=== PATIENT | female | born 1995 | race Caucasian/White ===

== ENCOUNTER 2018-02-08 08:00 | Outpatient (CLI) | payer MEDICAID | END 2018-02-08 08:01 | LOC: LAB.R 08:00 | PROVIDERS: ATTEND Nurse Practitioner Obstetrics & Gynecology | DX: Z11.3 Encounter for screening for infections with a predominantly sexual mode of transmission (principal) | CPT/HCPCS: 87491; 87591 ==

== ENCOUNTER 2018-02-10 08:15 | Outpatient (CLI) | payer MEDICAID ==
--- NOTE | 2018-02-10 16:43 | Ultrasound Report ---
Procedure Date: 02/10/2018 Accession Number: [id number] / [id number] Procedure: US - OB Detailed Eval CPT Code: FULL RESULT: EXAM: OB Detailed Eval DATE: 02/10/2018 9:50 AM CLINICAL HISTORY: ENCOUNTER FOR SCREENING, UNSOECIFIED TECHNIQUE: Real-time scanning was performed with procurement representative static images obtained. COMPARISON: None LAST MENSTRUAL PERIOD: 07/18/2017 Clinical Age: 29 weeks 4 days US Age: 29 weeks 4 days EFW Hadlock: 1224 grams EFW % Hadlock: 10% Heart Rate: 161 bpm EDC: 04/24/2018 US EDC: 04/24/2018 BPD Hadlock: 28 weeks 5 days; Mean mm 72 HC Hadlock: 29 weeks 4 days; Mean mm 271 AC Hadlock: 28 weeks 1 days; Mean mm 238 FL Hadlock: 28 weeks 4 days; Mean mm 54 Presentation: Cephalic Placental Location: Fundal/Posterior Cervical Length: 3.6 cm Amniotic Fluid: TOMEKA Subjectively normal cm; MVP 4.1 cm FINDINGS: There is a single live intrauterine in cephalic presentation with a posterior/fundal placenta without evidence of previa and a normally central three-vessel cord with a heart rate of 161 bpm and a sonographic age of 28 weeks and 5 days. The following anatomic structures were visualized and appear normal: The intracranial contents, including the ventricles and posterior fossa; the lips and orbits; the spine; the heart, including 4 chamber view and outflow tracts, and diaphragm; the abdominal contents, including the stomach, the bilateral kidneys, and urinary bladder, as well as a normal 3-vessel cord insertion; 4 limbs. IMPRESSION: Single live intrauterine gestation with a sonographic age of 28 weeks and 5 days.
== END 2018-02-10 08:16 | disposition home or self-care (01) ==
LOC: DI 08:15
PROVIDERS: ATTEND Nurse Practitioner Obstetrics & Gynecology
DX: Z36.9 Encounter for antenatal screening, unspecified (principal)
CPT/HCPCS: 76811

== ENCOUNTER 2018-02-20 10:49 | Outpatient (CLI) | payer MEDICAID ==
[2018-02-20 11:21] LABS: BILIRUBIN,URINE NEGATIVE (NEGATIVE); GLUCOSE, URINE (UA) NEGATIVE (NEGATIVE); KETONES,URINE (UA) 15 mg/dL (NEGATIVE); LEUKOCYTE ESTERASE, URINE NEGATIVE (NEGATIVE); NITRITE,URINE NEGATIVE (NEGATIVE); OCCULT BLOOD,URINE NEGATIVE (NEGATIVE); PROTEIN,URINE NEGATIVE (NEGATIVE); UROBILINOGEN,URINE 0.2 (NORMAL) E.U./dL (NORMAL)
[2018-02-20 11:22] LABS: CLARITY,URINE CLEAR (CLEAR)
[2018-02-20 11:28] LABS: BACTERIA,URINE Few /HPF (None Seen); RBC,URINE 0-5 /HPF (0-5); SQUAMOUS EPITHELIAL CELL,UR MOD Squamous (<= Few)
[2018-02-20 12:25] LABS: BASOPHILS % (AUTO) 0.2 %; EOSINOPHILS # (AUTO) 0.1 10^3/uL (0.0-0.7); EOSINOPHILS % (AUTO) 0.6 %; HGB - HEMOGLOBIN 11.4 g/dL (12.0-16.0); LYMPHOCYTES # (AUTO) 1.9 10^3/uL (1.5-3.5); LYMPHOCYTES % (AUTO) 15.6 %; MEAN CORPUSCULAR HEMOGLOBIN 30.5 pg (27.0-31.0); MEAN CORPUSCULAR HGB CONC 33.9 g/dL (32.0-36.0); MEAN PLATELET VOLUME 7.2 fL (7.9-10.8); MONOCYTES # (AUTO) 0.7 10^3/uL (0.0-1.0); MONOCYTES % (AUTO) 5.6 %; NEUTROPHILS # (AUTO) 9.3 10^3/uL (1.5-6.6); PLT - PLATELET COUNT 367 10^3/uL (130-450); RED BLOOD COUNT 3.75 10^6/uL (4.20-5.40); RED CELL DISTRIBUTION WIDTH 12.7 % (12.0-15.0); WHITE BLOOD COUNT 11.9 x10^3/uL (4.8-10.8)
[2018-02-21 11:56] LABS: HEPATITIS C ANTIBODY NON-REACTIVE (NON-REACTIVE)
[2018-02-21 11:58] LABS: HEPATITIS B SURFACE ANTIGEN NON-REACTIVE (NON-REACTIVE)
[2018-02-21 13:52] LABS: HIV AG/AB 4TH GEN NON-REACTIVE (NON-REACTIVE)
== END 2018-02-20 10:50 | disposition home or self-care (01) ==
LOC: LAB 10:49
PROVIDERS: ATTEND Nurse Practitioner Obstetrics & Gynecology
DX: Z36.9 Encounter for antenatal screening, unspecified (principal)
CPT/HCPCS: 36415; 81001; 81599; 82950; 85025; 86762; 86803; 86850; 86900; 86901; 87340; 87389

== ENCOUNTER 2018-03-07 08:00 | Outpatient (CLI) | payer MEDICAID | END 2018-03-07 08:01 | LOC: LAB.R 08:00 | PROVIDERS: ATTEND Nurse Practitioner Obstetrics & Gynecology | DX: Z11.3 Encounter for screening for infections with a predominantly sexual mode of transmission (principal) | CPT/HCPCS: 87491; 87591 ==

== ENCOUNTER 2018-04-07 16:07 | Inpatient (IN) | payer MEDICAID ==
[2018-04-07] MEDS ORDERED: SODIUM CHLORIDE FLUSH 0.9% 10 ML SYRINGE IVP PRN (16:43)
[2018-04-07] MEDS ORDERED: fentaNYL 100 MCG/2 ML VIAL IVP PRN (16:43)
[2018-04-07] MEDS ORDERED: URSODIOL 250 MG TABLET PO SCH (17:00)
[2018-04-07 17:34] LABS: BASOPHILS % (AUTO) 0.3 %; EOSINOPHILS # (AUTO) 0.1 10^3/uL (0.0-0.7); EOSINOPHILS % (AUTO) 1.3 %; HGB - HEMOGLOBIN 12.2 g/dL (12.0-16.0); LYMPHOCYTES # (AUTO) 1.5 10^3/uL (1.5-3.5); LYMPHOCYTES % (AUTO) 19.8 %; MEAN CORPUSCULAR HEMOGLOBIN 30.4 pg (27.0-31.0); MEAN CORPUSCULAR HGB CONC 34.6 g/dL (32.0-36.0); MEAN CORPUSCULAR VOLUME 87.9 fL (81.0-99.0); MEAN PLATELET VOLUME 7.8 fL (7.9-10.8); MONOCYTES # (AUTO) 0.5 10^3/uL (0.0-1.0); MONOCYTES % (AUTO) 6.9 %; NEUTROPHILS # (AUTO) 5.4 10^3/uL (1.5-6.6); NEUTROPHILS % (AUTO) 71.7 %; PLT - PLATELET COUNT 376 10^3/uL (130-450); RED CELL DISTRIBUTION WIDTH 12.5 % (12.0-15.0); WHITE BLOOD COUNT 7.6 x10^3/uL (4.8-10.8)
[2018-04-07 17:45] LABS: ALBUMIN 3.1 g/dL (3.2-5.5); ALBUMIN/GLOBULIN RATIO 0.6 (1.0-2.2); BILIRUBIN,TOTAL 0.4 mg/dL (0.2-1.0); CALCIUM 9.1 mg/dL (8.5-10.3); CREATININE 0.6 mg/dL (0.4-1.0)
--- NOTE | 2018-04-07 18:00 | HISTORY & PHYSICAL EXAMINATION ---
Admit History - Instructions [place]/Slash: -Left hand click circles element as positive or present. -Right hand click slashes element as negative or not present. - Visit Reason Visit Reason: Other - : 2 Parity: 0 Premature: 0 Ectopic: 0 : 1 Care: positive: [facility] Risk/History: positive: None Complications This : positive: Other Smoking Status: Never smoker - Mother's Labs Mother's Blood Type: positive: A Mother's RH: positive: Positive GBS: positive: Other Rubella Status: positive: Immune Review of Systems - Constitutional Constitutional: denies: Fatigue, Fever, Chills, Malaise - Eyes Eyes: denies: Pain, Irritation, Blurred vision, Spots in vision, Vision loss - Cardiovascular Cariovascular: denies: Irregular heart rate, Palpitations, Chest pain, Edema - Respiratory Respiratory: denies: Cough, Sputum production, Wheezing, Snoring - Gastrointestinal Gastrointestinal: denies: Abdominal pain, Constipation, Diarrhea, Nausea, Vomiting - Genitourinary Genitourinary: denies: Dysuria, Frequency, Urgency - Musculoskeletal Musculoskeletal: denies: Muscle pain - Integumentary Integumentary: reports: Pruritis - Neurological Neurological: denies: General weakness, Headache, Dizziness - Psychiatric Psychiatric: denies: Depression, Anxiety Physical - Abdominal Exam Contraction Frequency (min/apart): occasional Contraction Intensity: positive: Mild Uterine Resting Tone: positive: Soft - Monitoring Heart Rate Baseline: 150 Strip Review: positive: Category I - Presentation Presentation: positive: Vertex - Vaginal Exam Membranes: positive: Membranes intact Dilation (in cm): 1 Effacement (%): 50 Station: positive: -3 Cervical Position: positive: Posterior - Speculum Exam Speculum Exam Performed: positive: No Plan for Labor - Plan For Labor I expect patient to be DC'd or transferred within 96 hours.: Yes Plan for Labor: HPI: Evan is a 23yo @ 37.4wks gestation by 6w4d ultrasound who presented to the office today with c/o severe itching on the palms of her hands and the soles of her feet which worsens at night. She was a late transfer of care at 29 weeks gestation with limited care up until that time. She received 2 ultrasounds in early to establish dates. Her has been complicated by +chlamydia at 29 weeks gestation which was treated appropriately and a third trimester test of cure was negative. She denies VB or Lof. She reports intermittent lower back discomfort and menstrual-like lower abdominal cramping. She denies CANALES, visual disturbances, RUQ or epigastric pain. She r eports +FM. Her mother is with her and supportive. Dating criteria: 1. LMP unsure 2. 6w5d ultrasound JANICE 04/24/2018 3. Serial exams 29-37 weeks agree OB History: 1. SAB 08/2016 2. Current: +chlamydia, third trimester LUCIANO negative PMHx: none Surgical Hx: none Family Hx: Asthma-sister labs: A pos; antibody neg Hgb 11.4; Hct 33.7; PLT 367 Rubella immune RPR non-reactive Hep B non-reactive Hep C non-reactive HIV negative 1 hour GTT 130 Chlamydia positive GC negative Third trimester GC/CT negative Ultrasounds: FAS 02/13/2018 WNL, posterior, fundal placenta, no previa. Physical Exam: A&O x 4 Heart RRR w/o M/G/R Lungs CTAB Abdomen gravid, soft, nontender EFW 5.5lbs Bilateral LE's no edema Labs on admission: AST 124 ALT 187 ALK Phos 257 K 3.4 Na 134 Hgb 12.2 Hct 35.2 PLT 376 Assessment: 23yo @ 37.5wks gestation by 6.5wk U/S Cholestasis in Pre-induction cervical ripening with BC misoprostol 50mcg q 4 hours Rapid GBS pending Plan: Initiation of ursediol 500mg tid KCL 40 PO x 1 dose Continuous monitoring Pre-induction cervical ripening until favorable cervical status is reached Close monitoring of CMP - will repeat in AM Repeat CBC for evaluation of improved K in AM. Anticipate spontaneous vaginal delivery Dr. Mari attending physician aware of patient status and consult requested. He concurs with present plan. Will continue to update Dr. Mari with ongoing plan of care. Pt and mother both verbalized understanding and agree to above plan. Denies further questions or concerns at this time.
[2018-04-07] MEDS: miSOPROStol 100 MCG TABLET BC SCH (18:15)
[2018-04-07] MEDS ORDERED: POTASSIUM CHLORIDE 20 MEQ TABLET PO SCH (18:44)
--- NOTE | 2018-04-07 19:10 | PREOP HISTORY & PHYSICAL ---
DATE OF SERVICE: 04/07/2018 Physician: Lennox Mari MD PATIENT IDENTIFICATION: The patient is a 23-year-old, G2, P0, AB1, female whose EDC is 04/24/2018. CHIEF COMPLAINT: Itching generalized throughout the body, as well as in particular plantar and palmar itching. HISTORY OF PRESENT ILLNESS: The patient states she developed this itching roughly 1 week ago. It has become progressively worse with time. She states that she has never had any episodes like this in the past. Upon questioning her sister, she had some itching at tem but was not diagnosed with Cholestasis. There is no family history of any cholestasis of . She relates that she is doing well otherwise. OB HISTORY: Positive for 1 spontaneous miscarriage. She started her OB records here, start at 29 weeks EGA. she had She has had regular visits. LABS: Her labs show her to be A positive. She is rubella immune. Her hepatitis B is noted to be negative. Her HIV is also negative. PAST MEDICAL HISTORY: The patient denies any hypertensive, diabetic, or cardiac disease. PAST SURGICAL HISTORY: None. ALLERGIES: NONE KNOWN. CURRENT MEDICATIONS: Those of vitamins. HABITS: The patient denies use of alcohol, tobacco, street or addictive drugs. FAMILY HISTORY: Negative for any cholestasis of . VITAL SIGNS: Her blood pressure is noted to be normal at this particular time. In clinic today, her blood pressure was 108/56. Fundal height is concurrent. heart rate is 138. LABORATORY DATA: Here in the hospital, her CBC shows a white count of 7.6. Hemoglobin is 12.2. Hematocrit is 35.2. Platelets are 376. Her chemistries, however, showed a sodium of 134 and potassium of 3.4. ALT was 187. AST was 124. Alkaline phosphatase was elevated, as to be expected. Her albumin and globulin are both low. ASSESSMENT AND PLAN: The patient is a 23-year-old, G2, P0, female at 37.4 weeks. She shows classic signs of cholestasis of . We have drawn. She has had the bile salts drawn at this particular time; however, they are pending and will take a while to return. The presumptive diagnosis of cholestasis of has been made. She has had cervical ripening with induction being scheduled at this time. She is currently being followed on the monitor continuously. She is also receiving Ursocol to help with some of the itching. At this particular time, we will order hepatitis panels to rule out any acute or developing hepatitis A, B, or C. TD: 04/07/2018 18:28 MTDCaleb
[2018-04-07 19:26] LABS: INR 0.9 (0.8-1.2); PT - PROTHROMBIN TIME 10.7 secs (9.9-12.6)
[2018-04-07 19:30] LABS: BILIRUBIN,DIRECT 0.2 mg/dL (0.1-0.5); BILIRUBIN,INDIRECT 0.6 mg/dL; BILIRUBIN,TOTAL 0.8 mg/dL (0.2-1.0)
[2018-04-08] MEDS: miSOPROStol 100 MCG TABLET BC SCH (05:51)
[2018-04-08 09:33] LABS: BASOPHILS % (AUTO) 0.3 %; EOSINOPHILS # (AUTO) 0.1 10^3/uL (0.0-0.7); EOSINOPHILS % (AUTO) 0.6 %; HGB - HEMOGLOBIN 12.4 g/dL (12.0-16.0); LYMPHOCYTES # (AUTO) 1.7 10^3/uL (1.5-3.5); LYMPHOCYTES % (AUTO) 13.6 %; MEAN CORPUSCULAR HEMOGLOBIN 30.4 pg (27.0-31.0); MEAN CORPUSCULAR HGB CONC 34.3 g/dL (32.0-36.0); MEAN CORPUSCULAR VOLUME 88.6 fL (81.0-99.0); MEAN PLATELET VOLUME 7.7 fL (7.9-10.8); MONOCYTES # (AUTO) 0.7 10^3/uL (0.0-1.0); MONOCYTES % (AUTO) 5.1 %; NEUTROPHILS # (AUTO) 10.2 10^3/uL (1.5-6.6); NEUTROPHILS % (AUTO) 80.4 %; PLT - PLATELET COUNT 358 10^3/uL (130-450); RED BLOOD COUNT 4.08 10^6/uL (4.20-5.40); RED CELL DISTRIBUTION WIDTH 12.5 % (12.0-15.0); WHITE BLOOD COUNT 12.7 x10^3/uL (4.8-10.8)
[2018-04-08 09:45] LABS: ALBUMIN/GLOBULIN RATIO 0.6 (1.0-2.2); BILIRUBIN,TOTAL 0.8 mg/dL (0.2-1.0); CREATININE 0.6 mg/dL (0.4-1.0); TOTAL PROTEIN 7.8 g/dL (6.7-8.2)
[2018-04-08] MEDS ORDERED: fent/BUPIV 2 MCG/0.125% 250 ML EP ONE (09:47)
--- NOTE | 2018-04-08 09:51 | PROVIDER PROGRESS NOTE ---
Labor Progress Note - Uterine Monitoring Uterine Monitoring Mode: positive: External toco Contraction Frequency (min/apart): 1-3 Contraction Intensity: positive: Moderate to strong Uterine Resting Tone: positive: Soft - Monitoring Monitor Mode: positive: External ultrasound Heart Rate Baseline: 150 Heart Rate Variability: positive: Moderate (6-25 bmp) Accelerations: positive: Present, 15x15 Decelerations: positive: None Strip Review: positive: Category I - Vaginal Exam Dilation (in cm): 2 Effacement (%): 80 Station: 0 Cervical Position: Midposition - Labor Progress Note Labor Progress Note/Additional Text: S: Breathing through contractions and feeling uncomfortable. She is requesting an epidural for pain management. She states she is feeling well overall. Her mom and sister are supportive at the bedside. O: BP 123/69, T36.7, HR 78, RR22 Contractions palpate moderate-strong every 2 minutes with soft resting tone. FHR baseline 150s, moderate variability, + accels, no decels SVE 2/80/0, vertex, medium consistency Labs: Hgb 12.2-12.4; Hct 35.2-36.2; PLT 376-358 PT 10.7; INR 0.9, APTT 26.0 K 3.4; Na 134 BUN 7; Cr 0.6; Total bilirubin 8 AST 124; ALT 187; Alk Phos 257 A: 23yo @ 37.6wks gestation Intrahepatic cholestasis of Elevated LFTs (see above values) FHR Category I Pre-induction cervical ripening with 50mcg BC misoprostol q 4 hours x 2 doses GBS rapid - pending P: Continuous monitoring. Continue active management to expedite delivery secondary to cholestasis diagnosis. Anesthesia notified to place epidural per maternal request Will initiate pitocin per protocol when patient comfortable with epidural Consider AROM with next SVE Repeat CBC this morning WNL. Repeat LFTs pending. Dr. Mari, attending physician, notified of ongoing plan of care and in agreement with the above plan. Reviewed plan of care with patient and her mother who is supportive at the bedside. They are both in agreement with the above plan and deny further questions or concerns at this time.
[2018-04-08] MEDS ORDERED: OXYTOCIN/SODIUM CHLORIDE 500 ML IV SCH (10:00)
--- NOTE | 2018-04-08 10:03 | ANESTHESIA ---
Pre-Anesthesia VS, & Labs - Diagnosis IUP term labor - Procedure EMILIO placement Vital Signs: Temp Pulse Resp BP Pulse Ox 36.7 C 78 22 123/69 100 04/08/18 05:00 04/08/18 05:00 04/08/18 05:00 04/08/18 05:00 04/08/18 05:00 Height 5 ft 1 in Weight (kg) 59.421 kg - NPO Last Fluid Intake: clears t/o morning - Is Patient ?: Yes - Lab Results Current Lab Results: Laboratory Tests 04/08/18 09:30: Sodium 133 L, Potassium 3.8, Chloride 100 L, Carbon Dioxide 21, Anion Gap 12.0, BUN 8, Creatinine 0.6, Estimated GFR (MDRD) 124, Glucose 110 H, Calcium 9.0, Total Bilirubin 0.8, AST 173 H, ALT 238 H, Alkaline Phosphatase 250 H, Total Protein 7.8, Albumin 3.0 L, Globulin 4.8 H, Albumin/Globulin Ratio 0.6 L 04/08/18 09:30: WBC 12.7 H, RBC 4.08 L, Hgb 12.4, Hct 36.2 L, MCV 88.6, MCH 30.4, MCHC 34.3, RDW 12.5, Plt Count 358, MPV 7.7 L, Neut # (Auto) 10.2 H, Lymph # (Auto) 1.7, [place] # (Auto) 0.7, Eos # (Auto) 0.1, Baso # (Auto) 0.0, Absolute Nucleated RBC 0.00, Nucleated RBC % 0.0 04/07/18 19:04: PT 10.7, INR 0.9, APTT 26.0 04/07/18 19:04: Total Bilirubin 0.8, Direct Bilirubin 0.2, Indirect Bilirubin 0.6 04/07/18 17:15: Sodium 134 L, Potassium 3.4 L, Chloride 101, Carbon Dioxide 22, Anion Gap 11.0, BUN 7, Creatinine 0.6, Estimated GFR (MDRD) 124, Glucose 82, Calcium 9.1, Total Bilirubin 0.4, AST 124 H, ALT 187 H, Alkaline Phosphatase 257 H, Total Protein 8.0, Albumin 3.1 L, Globulin 4.8 H, Albumin/Globulin Ratio 0.6 L 04/07/18 17:15: WBC 7.6, RBC 4.00 L, Hgb 12.2, Hct 35.2 L, MCV 87.9, MCH 30.4, MCHC 34.6, RDW 12.5, Plt Count 376, MPV 7.8 L, Neut # (Auto) 5.4, Lymph # (Auto) 1.5, [place] # (Auto) 0.5, Eos # (Auto) 0.1, Baso # (Auto) 0.0, Absolute Nucleated RBC 0.00, Nucleated RBC % 0.1 Lab results reviewed: Yes Fish Bones: 04/08/18 09:30 04/08/18 09:30 Home Medications and Allergies Active Medications Fentanyl (Fentanyl) 50 mcg IVP Q1H PRN PRN Reason: PAIN Last Admin: 04/08/18 02:33 Dose: 50 mcg Lactated Ringer's (Lr) 1,000 mls @ 100 mls/hr IV .Q10H IVAN Oxytocin/Sodium Chloride (Pitocin/Sodium Chloride) 500 mls @ 1 mls/hr IV TITR IVAN; Protocol Sodium Chloride (Normal Saline Flush 0.9%) 10 ml IVP 0100,0900,1700 IVAN Sodium Chloride (Normal Saline Flush 0.9%) 10 ml IVP PRN PRN PRN Reason: NEEDED PER PROVIDER ORDERS Ursodiol (Vicente 250) 500 mg PO TIDWM IVAN Allergies/Adverse Reactions: Allergies Allergy/AdvReac Type Severity Reaction Status Date / Time No Known Drug Allergies Allergy Verified 04/07/18 23:31 Anes History & Medical History - Anesthetic History Anesthesia Complications: reports: No previous complications Family history of Anesthesia Complications: Denies Family history of Malignant Hyperthermia: Denies - Medical History Cardiovascular: reports: None Pulmonary: reports: None Smoking Status: Never smoker - Obstetrical History : 2 Parity: 0 Events: positive: None Complications: positive: Other Exam General: Alert, Oriented x3, Cooperative, No acute distress Dental: WNL Mouth Openin Fingerbreadth Neck Mobility: Normal Mallampati classification: II Respiratory: Lungs clear Cardiovascular: Regular rate Plan Anesthesia Type: Epidural Consent for Procedure(s) Verified and Reviewed: Yes Code Status: Attempt Resuscitation ASA classification: 2-Mild systemic disease Is this case an emergency?: No
[2018-04-08] MEDS: LACTATED RINGERS 1,000 ML IV SCH (10:08)
[2018-04-08] MEDS ORDERED: ONDANSETRON 4 MG/2 ML VIAL IVP PRN (10:41)
[2018-04-08] MEDS ORDERED: LACTATED RINGERS 500 ML IV ONE (10:41)
[2018-04-08] MEDS ORDERED: METOCLOPRAMIDE 10 MG/2 ML VIAL IVP PRN (10:41)
[2018-04-08] MEDS ORDERED: ePHEDrine 50 MG/ML VIAL IVP PRN (10:41)
[2018-04-08] MEDS ORDERED: NALOXONE 0.4 MG/ML VIAL IVP PRN (10:41)
[2018-04-08] MEDS ORDERED: NALBUPHINE 10 MG/ML AMP IVP PRN (10:41)
[2018-04-08] MEDS ORDERED: fent/BUPIV 2 MCG/0.125% 250 ML EP PRN (10:41)
[2018-04-08] MEDS ORDERED: diphenhydrAMINE INJ 50 MG/ML VIAL IVP PRN (10:41)
--- NOTE | 2018-04-08 11:16 | PROVIDER PROGRESS NOTE ---
Labor Progress Note - Uterine Monitoring Uterine Monitoring Mode: positive: External toco Contraction Frequency (min/apart): 2-3 Contraction Intensity: positive: Moderate to strong Uterine Resting Tone: positive: Soft - Monitoring Monitor Mode: positive: External ultrasound Heart Rate Baseline: 150 Heart Rate Variability: positive: Moderate (6-25 bmp) Accelerations: positive: Present, 15x15 Decelerations: positive: None Strip Review: positive: Category I - Labor Progress Note Labor Progress Note/Additional Text: S: Patient resting comfortably in bed with epidural. Mother and sister supportive at the bedside. O: BP 104/83, HR 81, RR 20 Contractions palpate moderate -strong every 2-3 minutes with soft resting tone FHR baseline 150s, moderate variability, +accels, no decels Hgb 12.2-12.4 WBC 7.6-12.7 PT 10.7 INR 0.9 APTT 26.0 K 3.4-3.8 Total bilirubin 0.4-0.8-0.8 AST 124-173 ALT 187-238 Alk Phos 257-250 A: 23yo @ 37.6wks gestation by 6.5wk U/S Intrahepatic cholestasis of Early labor P: Continuous monitoring Initiate pitocin with titration per protocol AROM with next SVE Dr. Mari, attending physician, notified of change in LFTs and plans to notify MFM to review recommendations for continued plan of care.
--- NOTE | 2018-04-08 11:53 | PROVIDER PROGRESS NOTE ---
Labor Progress Note - Uterine Monitoring Contraction Intensity: positive: Moderate Uterine Resting Tone: positive: Soft - Monitoring Monitor Mode: positive: External ultrasound - Vaginal Exam Dilation (in cm): 2 Effacement (%): 80% - Labor Progress Note Labor Progress Note/Additional Text: Called [facility] Dr Turner and reviewed the case. discussed the rising LFT's He concured with delivery here and progressing to vaginal delivery and C/S for indications. will start low dose Pit at 1 for now.
[2018-04-08] MEDS: OXYTOCIN/SODIUM CHLORIDE 500 ML IV SCH (13:20)
[2018-04-08] MEDS: URSODIOL 250 MG TABLET PO SCH ×2 (13:21→17:46)
[2018-04-08] MEDS ORDERED: LIDOCAINE-MPF 2% 5 ML VIAL IM ONE (15:00)
--- NOTE | 2018-04-08 19:06 | PROVIDER PROGRESS NOTE ---
Labor Progress Note - Uterine Monitoring Uterine Monitoring Mode: positive: External toco Contraction Frequency (min/apart): 2-4 Contraction Intensity: positive: Moderate to strong Uterine Resting Tone: positive: Soft - Monitoring Monitor Mode: positive: External ultrasound Heart Rate Baseline: 150 Heart Rate Variability: positive: Moderate (6-25 bmp) Accelerations: positive: Present, 15x15 Decelerations: positive: None Strip Review: positive: Category I - Vaginal Exam Dilation (in cm): 4 Effacement (%): 90 Station: 0 Cervical Position: Anterior - Labor Progress Note Labor Progress Note/Additional Text: S: Pt comfortable with epidural. Mom and sister supportive at the bedside. She denies questions or concerns at this time. Anxious to meet her baby. O: BP 102/64, HR 114, RR 20 Contractions palpate moderate to strong every 2-4 minutes with soft resting tone. FHR pattern baseline 150, moderate variability, + accels, no decels SVE 4/90/0, vertex, anterior position, soft Pitocin infusing at 4mU/min AROM small amount of pink-tinged fluid A: 23yo @ 37.5wks gestation Intrahepatic cholestasis of Pitocin induction of labor GBS negative FHR Category I P: Continue titration of pitocin per protocol Continuous monitoring Encouraged frequent position changes in bed with peanut ball Reviewed plan of care with Dr. Mari, on-call physician, who is in agreement with continued care plan.
[2018-04-08 22:15] LABS: ALBUMIN 2.8 g/dL (3.2-5.5); ALBUMIN/GLOBULIN RATIO 0.7 (1.0-2.2); BILIRUBIN,TOTAL 0.9 mg/dL (0.2-1.0); CALCIUM 8.6 mg/dL (8.5-10.3); CREATININE 0.6 mg/dL (0.4-1.0)
[2018-04-08] MEDS ORDERED: LIDOCAINE 1% 50 ML MDV ONE (23:24)
[2018-04-09] MEDS ORDERED: HYDROCORTISONE/PRAMOXINE 10 GM PR PRN (00:06)
[2018-04-09] MEDS ORDERED: WITCH HAZEL/GLYCERIN 1 EACH MED..PAD TOP PRN (00:06)
[2018-04-09] MEDS ORDERED: OXYTOCIN/SODIUM CHLORIDE 250 ML IV ONE (00:06)
--- NOTE | 2018-04-09 00:40 | DELIVERY NOTE ---
Delivery Note - Labor Labor: positive: Augmented by ARM, Augmented by oxytocin, Other - Delivery Method Delivery Method: positive: Spontaneous vaginal delivery - Presentation Presentation: positive: Vertex, YESSICA - left occiput anterior - Nuchal Cord Nuchal Cord: positive: Present - Amniotic Fluid Description Amniotic Fluid Description: positive: Clear - Episiotomy Type Episiotomy Type: positive: None - Laceration Laceration: positive: 1st degree, Labial, Perineal - Suture Suture Type: positive: Vicryl Suture Size: positive: 4-0 - Delivery Outcome Delivery Outcome: positive: Livebirth - [place] : positive: Placed in direct skin contact with mother, Bulb syringe, Stimulated, [place] used, Warmer used sex: positive: Female - Cord Cord: positive: 3 vessels - Placenta Placenta: positive: Intact, Spontaneous - Estimated Blood Loss Estimated Blood Loss (in cc): 400 - Post Delivery Events Post Delivery Events: positive: No post delivery events - Delivery Comments (Free Text/Narrative) Delivery Comments (Free Text/Narrative): Labor: This 23yo @ 37.5wks gestation by LMP=6.5wk U/S presented on 04/07/2019 at 1640 for medical induction of labor secondary to intrahepatic cholestasis in . Cervix was 1/50/-3, posterior, vertex with intact membranes. FHR demonstrated a baseline of 150 in a Category I pattern throughout labor. She underwent pre-induction cervical ripening with 50mcg misoprostol BC x2 doses. Epidural placed upon maternal request. Pitocin administered for augmentation for a maximum infusion rate of 5mU/min. AROM occurred on 04/08/2018 @ approximately 1850 and was noted to be a small amount of clear fluid. Pt progressed to c/c/+2 @ 2232. : Normal SVB of viable female infant named Collette. Loose nuchal x1 and infant somersaulted through cord secondary to rapid delivery of shoulders. Time of delivery 2316 on 04/08/2018. Apgars were 7 and 9 at 1 and 5 minutes respectively. The was placed on maternal abdomen, stimulated, dried, and placed skin to skin. The umbilical cord was allowed to stop pulsating at which time it was doubly clamped by CNM and cut by mother of the patient. Cord blood was obtained. Placenta delivered spontaneously and intact at 2321. 3VC. Pitocin administered via IV for hemostasis. EBL 400mL. Fourth stage: Uterine fundus firm and there is no excessive bleeding. The perineum, vagina, and cervix were inspected and found to have minor 1st degree perineal laceration approximately 2cm in length, in addition to a left labial laceration. Laceration infiltrated with 1% lidocaine for local analgesia. Repair completed with 4-0 Vicryl on an SH needle in standard fashion under sterile conditions. Tissues well approximated. initiated. Family bonding well. Both mother and baby were left in stable condition.
[2018-04-09] MEDS: ACETAMINOPHEN 500 MG TABLET PO SCH ×3 (01:35→18:02)
[2018-04-09] MEDS: IBUPROFEN 800 MG TABLET PO SCH ×4 (01:35→22:29)
[2018-04-09] MEDS: URSODIOL 250 MG TABLET PO SCH (08:49)
[2018-04-09 09:21] LABS: ALBUMIN 2.3 g/dL (3.2-5.5); ALBUMIN/GLOBULIN RATIO 0.6 (1.0-2.2); BILIRUBIN,TOTAL 0.5 mg/dL (0.2-1.0); CALCIUM 8.6 mg/dL (8.5-10.3); CREATININE 0.7 mg/dL (0.4-1.0); HGB - HEMOGLOBIN 10.5 g/dL (12.0-16.0); MEAN CORPUSCULAR HEMOGLOBIN 30.6 pg (27.0-31.0); MEAN CORPUSCULAR HGB CONC 34.6 g/dL (32.0-36.0); MEAN CORPUSCULAR VOLUME 88.5 fL (81.0-99.0); MEAN PLATELET VOLUME 7.8 fL (7.9-10.8); RED BLOOD COUNT 3.44 10^6/uL (4.20-5.40); RED CELL DISTRIBUTION WIDTH 12.4 % (12.0-15.0); WHITE BLOOD COUNT 18.7 x10^3/uL (4.8-10.8)
--- NOTE | 2018-04-09 10:11 | PROVIDER PROGRESS NOTE ---
Subjective - Subjective Subjective: S: Bonding well with baby. without difficulty. Baby was supplemented with formula due to hypoglycemia. Bleeding minimal. Pain well controlled with ibuprofen and tylenol. Perineum slightly sore but pt states she has been able to comfortably walk to and from the bathroom. Mood is good. She states she feels well rested. O: BP 101/57, HR 70, T36.5, RR 16 AST 124-->173-->219-->175 ALT 187-->238-->280-->241 Bilirubin 0.8-->0.8-->0.9-->0.5 WBC 7.6-->12.7-->18.7 Hgb 12.2-->12.4-->10.5 Hct 35.2-->36.2-->30.4 PLT 376-->358-->320 Heart RRR w/o M/G/R. lungs CTAB. Abdomen gravid, soft, nontender with fundus firm at U-2. Edema and bruising noted to perineum. Repair intact. Scant lochia rubra. Bilateral LE's no edema. BG improved with supplementation A: 23yo -->P1 PPD#1 s/p TSVD of viable female named Scarlet Intrahepatic cholestasis of with significantly elevated LFTs - 9 hours LFTs declining (see above). First degree perineal laceration - intact P: Continue routine care and medications. Advised skin to skin while pt is awake to promote maternal bonding and successful Repeat LFT's q24 hours per [facility] recommendation. LFTs ordered for draw 04/10/[address] @ [address] Mari, coldfusion physician, notified of patient's status and improving laboratory evaluation of LFTs. Objective - Vital Signs/Intake & Output Vital Signs: Vital Signs x48h Temp Pulse Resp BP Pulse Ox 04/09/18 08:30 36.5 C 70 16 101/57 L 100 04/09/18 05:00 36.8 C 65 22 103/55 L 100 Intake & Output: Intake & Output 04/06/18 04/07/18 04/08/18 04/09/18 23:59 23:59 23:59 23:59 Intake Total 1786.667 Output Total 1000 1600 Balance 786.666 -1600 - Lab Results Fish Bones: 04/09/18 09:05 04/09/18 09:05 Other Labs: Lab Results x24hrs 04/09/18 04/09/18 04/08/18 Range/Units 09:05 09:05 21:40 WBC 18.7 H (4.8-10.8) x10^3/uL RBC 3.44 L (4.20-5.40) 10^6/uL Hgb 10.5 L (12.0-16.0) g/dL Hct 30.4 L (37.0-47.0) % MCV 88.5 (81.0-99.0) fL MCH 30.6 (27.0-31.0) pg MCHC 34.6 (32.0-36.0) g/dL RDW 12.4 (12.0-15.0) % Plt Count 320 (130-450) 10^3/uL MPV 7.8 L (7.9-10.8) fL Sodium 136 132 L (135-145) mmol/L Potassium 3.7 3.8 (3.5-5.0) mmol/L Chloride 103 100 L (101-111) mmol/L Carbon Dioxide 23 21 (21-32) mmol/L Anion Gap 10.0 11.0 (6-13) BUN 10 7 (6-20) mg/dL Creatinine 0.7 0.6 (0.4-1.0) mg/dL Estimated GFR (MDRD) 104 124 (>89) Glucose 127 H 76 (70-100) mg/dL Calcium 8.6 8.6 (8.5-10.3) mg/dL Total Bilirubin 0.5 0.9 (0.2-1.0) mg/dL AST 175 H 219 H (10-42) IU/L ALT 241 H 280 H (10-60) IU/L Alkaline Phosphatase 179 H 230 H (42-121) IU/L Total Protein 6.0 L 7.0 (6.7-8.2) g/dL Albumin 2.3 L 2.8 L (3.2-5.5) g/dL Globulin 3.7 4.2 (2.1-4.2) g/dL Albumin/Globulin Ratio 0.6 L 0.7 L (1.0-2.2)
--- NOTE | 2018-04-09 10:38 | ANESTHESIA POST OP EVALUATION ---
Anesthesia Post Eval - Post Anesthesia Eval CV Function Including HR & BP: positive: Stable Pain Control: positive: Adequate Nausea & Vomiting: positive: Negative Mental Status: positive: Appropriate Anesthesia Complications: positive: None (Patient states epidural was effective, no complaints, instructed to call if she develops postural headache. explained that some low back discomfort is common after epidural.)
[2018-04-10] MEDS: ACETAMINOPHEN 500 MG TABLET PO SCH ×3 (01:50→17:35)
[2018-04-10] MEDS: IBUPROFEN 800 MG TABLET PO SCH ×4 (04:19→22:30)
[2018-04-10] MEDS: URSODIOL 250 MG TABLET PO SCH ×6 (08:36→17:35)
[2018-04-10 09:06] LABS: ALBUMIN 2.7 g/dL (3.2-5.5); ALBUMIN/GLOBULIN RATIO 0.6 (1.0-2.2); BILIRUBIN,DIRECT 0.1 mg/dL (0.1-0.5); BILIRUBIN,INDIRECT 0.1 mg/dL; BILIRUBIN,TOTAL 0.2 mg/dL (0.2-1.0); CALCIUM 8.9 mg/dL (8.5-10.3); CREATININE 0.7 mg/dL (0.4-1.0); TOTAL PROTEIN 6.9 g/dL (6.7-8.2)
[2018-04-10] MEDS: SODIUM CHLORIDE FLUSH 0.9% 10 ML SYRINGE IVP SCH ×6 (17:19→17:35)
[2018-04-10] MEDS: LACTATED RINGERS 1,000 ML IV SCH ×5 (17:20→17:34)
[2018-04-10] MEDS: OXYTOCIN/SODIUM CHLORIDE 500 ML IV SCH ×2 (17:20→17:34)
[2018-04-10 17:51] LABS: HEPATITIS A IGM NON-REACTIVE (NON-REACTIVE); HEPATITIS B CORE ANTIBODY IGM NON-REACTIVE (NON-REACTIVE); HEPATITIS B SURFACE ANTIGEN NON-REACTIVE (NON-REACTIVE); HEPATITIS BE ANTIGEN NONREACTIVE; HEPATITIS C ANTIBODY NON-REACTIVE (NON-REACTIVE)
--- NOTE | 2018-04-10 18:32 | PROVIDER PROGRESS NOTE ---
Subjective - Prog Note Date Prog Note Date: 04/10/18 Prog Note Time: 18:30 - Subjective Pt reports feeling: Improved Subjective: Evan is doing well. She denies pruritus @ this time. She is ambulating & voiding w/o difficulty or incontinence. She is passing flatus & tolerating a regular diet. She has adequate pain control w/o analgesia. She reports minimal lochia rubra. She is actively pumping her breasts w/o discomfort & reports that her latches w/ ease & sustains suckling w/o difficulty or discomfort. Her family is at the bedside & is very involved & supportive. Her partner resides in the [facility] & Evan does not intend to return w/in the first year of her infant, iDana's, life. She declines pp contraception & will not be returning to work. Objective - Vital Signs/Intake & Output Reviewed Vital Signs: Yes Vital Signs: Vital Signs x48h Temp Pulse Resp BP Pulse Ox 04/10/18 16:00 36.5 C 79 18 112/58 L 97 Intake & Output: Intake & Output 04/07/18 04/08/18 04/09/18 04/10/18 23:59 23:59 23:59 23:59 Intake Total 1786.667 500 Output Total 1000 1600 Balance 786.667 -1600 500 - Objective General Appearance: positive: No acute distress, Alert Eyes Bilateral: positive: Normal inspection, PERRL, EOMI, No scleral icterus Respiratory: positive: Chest non-tender, No respiratory distress, Breath sounds nml Cardiovascular: positive: Regular rate & rhythm, No murmur, No gallop Abdomen: positive: Non-tender, No distention, Other (FF u-2) Skin: positive: Color nml, No rash, Warm, Dry Extremities: positive: Non-tender, Full ROM, Nml appearance, No pedal edema. negative: Calf tenderness, Mariam's sign/cords Neurologic/Psychiatric: positive: Oriented x3, CN's nml (2-12), Motor nml, Sensation nml, Mood/affect nml Comments/Other: b/l breasts filling, nipples b/l intact & everted, mature milk expressible, strong milk ejection reflex - Lab Results Fish Bones: 04/09/18 09:05 04/10/18 08:40 Other Labs: Lab Results x24hrs 04/10/18 04/07/18 04/07/18 Range/Units 08:40 19:04 19:04 Sodium 138 (135-145) mmol/L Potassium 3.8 (3.5-5.0) mmol/L Chloride 104 (101-111) mmol/L Carbon Dioxide 24 (21-32) mmol/L Anion Gap 10.0 (6-13) BUN 10 (6-20) mg/dL Creatinine 0.7 (0.4-1.0) mg/dL Estimated GFR (MDRD) 104 (>89) Glucose 90 (70-100) mg/dL Calcium 8.9 (8.5-10.3) mg/dL Total Bilirubin 0.2 (0.2-1.0) mg/dL Direct Bilirubin 0.1 (0.1-0.5) mg/dL Indirect Bilirubin 0.1 mg/dL AST 86 H (10-42) IU/L ALT 184 H (10-60) IU/L Alkaline Phosphatase 166 H (42-121) IU/L Total Protein 6.9 (6.7-8.2) g/dL Albumin 2.7 L (3.2-5.5) g/dL Globulin 4.2 (2.1-4.2) g/dL Albumin/Globulin Ratio 0.6 L (1.0-2.2) Hepatitis A IgM Ab NON-REACTIVE (NON-REACTIVE) Hep Bs Antigen NON-REACTIVE NON-REACTIVE (NON-REACTIVE) Hep B Core IgM Ab NON-REACTIVE (NON-REACTIVE) Hepatitis Be Antigen Hepatitis C Antibody NON-REACTIVE (NON-REACTIVE) Hep C Ab Signal/Cutoff 0.00 (<1.00) 04/07/18 Range/Units 19:04 Sodium (135-145) mmol/L Potassium (3.5-5.0) mmol/L Chloride (101-111) mmol/L Carbon Dioxide (21-32) mmol/L Anion Gap (6-13) BUN (6-20) mg/dL Creatinine (0.4-1.0) mg/dL Estimated GFR (MDRD) (>89) Glucose (70-100) mg/dL Calcium (8.5-10.3) mg/dL Total Bilirubin (0.2-1.0) mg/dL Direct Bilirubin (0.1-0.5) mg/dL Indirect Bilirubin mg/dL AST (10-42) IU/L ALT (10-60) IU/L Alkaline Phosphatase (42-121) IU/L Total Protein (6.7-8.2) g/dL Albumin (3.2-5.5) g/dL Globulin (2.1-4.2) g/dL Albumin/Globulin Ratio (1.0-2.2) Hepatitis A IgM Ab (NON-REACTIVE) Hep Bs Antigen (NON-REACTIVE) Hep B Core IgM Ab (NON-REACTIVE) Hepatitis Be Antigen NONREACTIVE Hepatitis C Antibody (NON-REACTIVE) Hep C Ab Signal/Cutoff (<1.00) ABX Reporting Has patient been on IV antibiotics over the past 48 hours?: No Assessment/Plan - Problem List (1) (normal spontaneous vaginal delivery) Impression: 23 y/o s/p w/ labial laceration w/ repair, PPD #1, normal uterine involution Adequate pain control w/o analgesia well P: 1. continue routine PP care 2. support provided, encouraged direct nursing rather than pumping 3. Anticipate d/c home PPD#2, provided LFTs continue to improve (2) Intrahepatic cholestasis of Impression: LFTs decreasing Pruritus resolved Leukocytosis 04/09, not re-evaluated 04/10 1. CBC/LFTs in am 2. Continue ursodiol for now 3. reviewed pathophysiology 4. anticipate d/c home tomorrow if labs remain stable
[2018-04-11] MEDS: IBUPROFEN 800 MG TABLET PO SCH ×2 (01:08→06:48)
[2018-04-11 06:32] LABS: BASOPHILS % (AUTO) 0.2 %; EOSINOPHILS # (AUTO) 0.2 10^3/uL (0.0-0.7); EOSINOPHILS % (AUTO) 2.2 %; HGB - HEMOGLOBIN 10.1 g/dL (12.0-16.0); LYMPHOCYTES # (AUTO) 1.9 10^3/uL (1.5-3.5); LYMPHOCYTES % (AUTO) 18.2 %; MEAN CORPUSCULAR HEMOGLOBIN 30.4 pg (27.0-31.0); MEAN CORPUSCULAR HGB CONC 33.9 g/dL (32.0-36.0); MEAN CORPUSCULAR VOLUME 89.8 fL (81.0-99.0); MEAN PLATELET VOLUME 7.4 fL (7.9-10.8); MONOCYTES # (AUTO) 0.6 10^3/uL (0.0-1.0); MONOCYTES % (AUTO) 5.9 %; NEUTROPHILS # (AUTO) 7.7 10^3/uL (1.5-6.6); NEUTROPHILS % (AUTO) 73.5 %; PLT - PLATELET COUNT 375 10^3/uL (130-450); RED BLOOD COUNT 3.31 10^6/uL (4.20-5.40); RED CELL DISTRIBUTION WIDTH 12.9 % (12.0-15.0); WHITE BLOOD COUNT 10.4 x10^3/uL (4.8-10.8)
[2018-04-11 06:46] LABS: ALBUMIN 2.5 g/dL (3.2-5.5); ALKALINE PHOSPHATASE 135 IU/L (42-121); ALT ALANINE AMINOTRANSFERASE 131 IU/L (10-60); AST ASPARTATE AMINOTRANSFERASE 48 IU/L (10-42); BILIRUBIN,TOTAL 0.3 mg/dL (0.2-1.0); TOTAL PROTEIN 6.5 g/dL (6.7-8.2)
[2018-04-11 06:47] LABS: BILIRUBIN,DIRECT < 0.1 mg/dL (0.1-0.5)
--- NOTE | 2018-04-11 08:09 | Discharge Plan ---
Discharge Plan Disposition: 01 Home, Self Care Condition: Good Diet: Regular Activity Restrictions: No Restrictions Shower Restrictions: No Driving Restrictions: No Weight Bearing: Full Weight Instruction Topics: Vaginal After, Breastfeed How To, Exercises Kegel No Smoking: If you smoke, Please STOP! Call for help. Follow-up with: Gisella Anderson CNM, ARNP [Provider Admit Priv/Credential] -
--- NOTE | 2018-04-11 08:31 | DISCHARGE SUMMARY ---
"Discharge Summary Admit Date: 04/07/18 Discharge Date: 04/11/18 Discharging Provider: neal Code Status: Attempt Resuscitation Condition at Discharge: Good Discharge Disposition: 01 Home, Self Care Discharge Facility Name: [facility] - DIAGNOSES Admission Diagnoses: 37 weeks gestation intrahepatic cholestasis of Discharge Diagnoses with Status of Each Condition: intrahepatic cholestasis of , improving s/p delivery - HPI History of Present Illness: Yeny Mcdowell is a 23 y/o [id number] who was admitted for induction of labor secondary to intrahepatic cholestasis of w/ impaired liver function, diagnosed @ 37 weeks' gestation. She received misoprostol for preinduction cervical ripening & then underwent Pitocin infusion. She received an epidural for pain management & delivered a viable female infant vaginally w/o complicat ion. - CONSULTS | PROCEDURES Consultations: EDISON rees, anesthesia Procedures: preinduction cervical ripening induction of labor epidural placement - HOSPITAL COURSE Hospital Course: , Evan is doing well. She is ambulating & voiding w/o difficulty or incontinence. She is passing flatus & tolerating a regular diet. She is w/ excellent latch & copious mature milk production already. Her LFTs have steadily decreased & her pruritus has resolved. Her immediate pp leukocytosis has resolved & she has no evidence of infectious etiology of her hepatic symptoms. She is not planning to resume sexual relations w/in the next year, as her [place] & she will have no contact; she therefore declines contraception. She is not planning to return to work. She is living @ present w/ her mother & her sister, and she has excellent social s upport. She is able to fully articulate pp warning s/sx, including pp depression s/sx, and pp aftercare instructions. She is ready to leave the hospital. - ALLERGIES Allergies/Adverse Reactions: Allergies Allergy/AdvReac Type Severity Reaction Status Date / Time No Known Drug Allergies Allergy Verified 04/07/18 23:31 - MEDICATIONS Home Medications: Ambulatory Orders Medication Instructions Recorded Confirmed Ursodiol [Vicente 250] 500 mg PO TIDWM tablet 04/11/18 - PHYSICAL EXAM AT DISCHARGE General Appearance: positive: No acute distress, Alert Eyes Bilateral: positive: Normal inspection, PERRL, EOMI, No scleral icterus Respiratory: positive: Chest non-tender, No respiratory distress, Breath sounds nml Cardiovascular: positive: Regular rate & rhythm, No murmur, No gallop Abdomen: positive: Non-tender, No distention, Other (FFU-2) Skin: positive: Color nml, No rash, Warm, Dry Extremities: positive: Non-tender, Full ROM, Nml appearance, No pedal edema. negative: Calf tenderness, Mariam's sign/cords Neurologic/Psychiatric: positive: Oriented x3, CN's nml (2-12), Motor nml, Sensation nml, Mood/affect nml Physical Exam Other/Comments: Breasts b/l filling, NT; nipples b/l intact & everted; copious mature milk easily expressible. - LABS Result Diagrams: 04/11/18 06:09 04/10/18 08:40 - FOLLOW UP Follow Up: x1 week in outpatient capacity w/ Gisella Anderson CNM, earlier PRN - TIME SPENT Time Spent in Discharge (Minutes): 20"
[2018-04-11] MEDS: URSODIOL 250 MG TABLET PO SCH (09:44)
[2018-04-11 13:57] VITALS: BP 111/56
--- NOTE | 2018-04-11 14:04 | Labor Flowsheet ---
Labor Flowsheet Datetime Report Generated by CPN: 04/11/2018 14:04 Datetime: 04/09/2018 07:50 VITAL SIGNS NBP Sys/Luz/Mean (mmHg): 101 : 57 : 68 Pulse: 65 LaborFlag: Labor Datetime: 04/09/2018 00:18 SpO2 (%): 98 Datetime: 04/08/2018 23:16 UTERINE ACTIVITY Monitor Mode: External Frequency (min): 1-2.5 Quality: Strong Duration (sec): 60-90 Pattern: Normal: <= 5 Contractions in 10 Minutes Resting Tone (Palpate): Relaxed ASSESSMENT A Monitor Mode: External US Comments: unable to determine FHT, tracing mothers pulse Datetime: 04/08/2018 23:00 FHR Baseline Rate : 165 FHR Baseline Changes: Tachycardia Variability: Moderate 6-25 bpm Accelerations: 15X15 Decelerations: Variable Category: Category II Datetime: 04/08/2018 22:55 STAGE 2 Pushing: Coached on Pushing Pushing Progress: Descent with Pushing; Pushing Effectively with Contractions COMMUNICATION Communication: Provider at Bedside Provider Notified (Name): A.Justin, CNM Notification Reason: Labor Status Communication Comments: Attend delivery Datetime: 04/08/2018 22:46 I/O Interventions: Puente Discontinued Patient Care Comments: 450ml Datetime: 04/08/2018 22:39 Temperature (C): 37.0 Datetime: 04/08/2018 22:32 VAGINAL EXAM Dilatation (cm): 10.0 Effacement (%): 100 Station: 2 Exam by: K. Missy, RN Pushing Position: Laboring Down Datetime: 04/08/2018 22:21 Epidural Procedure Other: Redose Datetime: 04/08/2018 22:16 PAIN Pain Scale: 10 Datetime: 04/08/2018 22:15 Monitor Interventions for UA: [place] Adjusted Datetime: 04/08/2018 22:02 Actions for Decelerations: IV Bolus Datetime: 04/08/2018 21:57 Pain Coping: Sleeping Datetime: 04/08/2018 21:10 Anesthesia Comments: Epidural rate changed Datetime: 04/08/2018 21:00 Patient Position/Activity: Right Lateral Datetime: 04/08/2018 20:55 Pain Relief Measures: NEON PUMPER Use Pain Assessment Comments: Contacted anesthesia for rebolus Datetime: 04/08/2018 20:26 Monitor Interventions for FHR: Ultrasound Adjusted Datetime: 04/08/2018 20:25 Pain Presence: Intermittent Pain Type: Pressure Pain Location: Perineum Datetime: 04/08/2018 20:09 MEDICATIONS Pitocin (milliunits): Increased to @ 5 Datetime: 04/08/2018 18:50 Membrane Status: Ruptured Membranes Rupture Method: Artificial Amniotic Fluid Color: Clear Amniotic Fluid Amount: Small Amniotic Fluid Odor: Normal Vaginal Bleeding: Normal Show Cervix, Consistency: Soft Cervix, Position: Anterior Membrane Comments: AROM BY A Justin CRUZ Provider Reviewed Strip: Yes Strip Reviewed by: Hugo Anderson CNM Datetime: 04/08/2018 18:26 Pitocin Checklist: At Least 1 Acceleration of 15 bpm x 15 Seconds in 30 Minutes or Adequate Variabi lity; Uterus Palpates Soft between Contractions Datetime: 04/08/2018 18:00 Anesthesia Level Check: T9 Datetime: 04/08/2018 17:30 Oxygen Method: Room Air Datetime: 04/08/2018 16:30 MATERNAL ASSESSMENT Level of Consciousness: Fully Conscious Headache: Denies Datetime: 04/08/2018 16:00 Hygiene: Stefany Care ANESTHESIA Anesthesia Plans: Epidural Datetime: 04/08/2018 15:00 Plan of Care: Plan of Care Discussed; Labor Datetime: 04/08/2018 13:30 DTR's/Clonus: DTRs 1+; No Clonus Breath Sounds, Left: Clear and Equal Breath Sounds, Right: Clear and Equal Nausea/Vomiting: Denies RUQ Epigastric Pain: Denies PATIENT CARE IV/Blood Work: New IV Bag Hung Procedures: Sterile Vag Exam Labor/Induction: Augmentation Datetime: 04/08/2018 12:40 Stage of : Labor Vital Sign Comments: sitting up and eating lunch Datetime: 04/08/2018 10:22 Epidural Procedure: Loading Dose Datetime: 04/08/2018 10:17 Epidural Positioning: Sitting Datetime: 04/08/2018 10:08 PROCEDURE TIME OUT Procedure Verify: Correct Patient Identity; Correct Side and Site are Marked; Correct Patient Posit ion; Addressed Need to Administer Antibiotics or Fluids for Irrigation Datetime: 04/08/2018 09:33 Presentation 'A': Cephalic Lie 'A': Longitudinal Vaginal Exam Comments: Plan - pt wants her epidural Datetime: 04/08/2018 08:00 Contraction Comments: mom is in the jacuzzi Datetime: 04/08/2018 07:26 Pain Goal: 8 Comfort Measures: Breathing/Relaxation; Family Support Datetime: 04/08/2018 05:51 Cervical Ripening Agents: Cytotec @ 50 Datetime: 04/08/2018 05:00 Resting Tone IUP (mmHg): Datetime: 04/08/2018 02:31 Analgesics/Sedatives: Fentanyl (mcg) @ 50 Datetime: 04/08/2018 01:30 Vibroacoustic Stim: Datetime: 04/07/2018 20:45 Respirations: 20 Temperature Route: Oral Maternal Comments: TEACHING Instructional Method: Verbal Unit Routine: [place] to Room; Monitoring Pain Management: Comfort Measures
[2018-04-11 19:32] LABS: HCV RNA QNT <1.18 NOT DETECTED Log IU/mL (NOT DETECTED); HCV RNA QUANT RT PCR <15 NOT DETECTED IU/mL (NOT DETECTED)
== END 2018-04-11 11:55 | disposition home or self-care (01) | DRG 445 ==
LOC: FBP 16:08
PROVIDERS: ADMIT Nurse Practitioner Obstetrics & Gynecology; ATTEND Registered Nurse
PROC: 10E0XZZ Delivery of Products of Conception, External Approach (ICD-10-PCS; principal; 2018-04-08)
PROC: 3E0P7VZ Introduction of Hormone into Female Reproductive, Via Natural or Artificial Opening (ICD-10-PCS; 2018-04-08)
PROC: 3E033VJ Introduction of Other Hormone into Peripheral Vein, Percutaneous Approach (ICD-10-PCS; 2018-04-08)
PROC: 0HQ9XZZ Repair Perineum Skin, External Approach (ICD-10-PCS; 2018-04-08)
DX: K83.1 Obstruction of bile duct (principal); O26.62 Liver and biliary tract disorders in childbirth; O98.313 Other infections with a predominantly sexual mode of transmission complicating pregnancy, third trimester; Z37.0 Single live birth; O70.0 First degree perineal laceration during delivery; Z3A.37 37 weeks gestation of pregnancy; O69.81X0 Labor and delivery complicated by cord around neck, without compression, not applicable or unspecified; A56.8 Sexually transmitted chlamydial infection of other sites; O09.33 Supervision of pregnancy with insufficient antenatal care, third trimester
CPT/HCPCS: 36415; 80053; 80074; 80076; 82239; 82247; 82248; 85025; 85027; 85610; 85730; 87340; 87350; 87522; 87797